=== PATIENT | female | born 1955 | race Asian ===

== ENCOUNTER 2017-01-29 09:15 | Emergency (ER) | payer OTHER ==
[~2017-01-29] VITALS: Ht 147.3 cm; Wt 66.3 kg
[2017-01-29 09:51] LABS: HEMATOCRIT 45.2 % (36.0-46.0); MCH 29.4 PG (29.0-34.0); MCHC 32.7 G/DL (30.0-36.0); MCV 89.9 FL (83-99); MEAN PLAT.VOLUME 9.3 uM^3 (9.5-12.4); PLATELET COUNT 191 K/uL (156-360); RBC DIS.WIDTH-CV 13.2 % (11.8-14.6); RED BLOOD COUNT 5.03 M/uL (3.80-5.20); WHITE BLOOD COUNT 4.3 K/uL (4.1-10.2)
[2017-01-29 10:03] LABS: CHLORIDE 111 mEq/L (99-109); SODIUM 140 mEq/L (136-147)
[2017-01-29 10:04] LABS: GLUCOSE 92 mg/dL (70-99)
[2017-01-29 10:06] LABS: ANION GAP 7 MEQ/L (2-14)
[2017-01-29 10:08] LABS: GFR ESTIMATE (CALCULATED) > 59 mL/min/
[2017-01-29 10:09] LABS: UREA NITROGEN (BUN) 10 mg/dL (9-23)
[2017-01-29 10:12] LABS: TROP-I INTERPRETATION NEGATIVE; TROPONIN-I < 0.01 ng/mL (0.0-0.30)
[2017-01-29 10:56] LABS: D-DIMER ELISA 0.34 mg/L FEU (< 0.57)
[2017-01-29 13:02] LABS: TROP-I INTERPRETATION NEGATIVE; TROPONIN-I < 0.01 ng/mL (0.0-0.30)
[2017-01-29 14:43] VITALS: BP 139/84
== END 2017-01-29 14:44 | disposition home or self-care (01) ==
LOC: EME 09:15 → EDOF 13:46 → EME 13:46 → EDOF 13:46
PROVIDERS: Emergency Medicine
DX: R07.9 Chest pain, unspecified (principal); R42 Dizziness and giddiness; M79.605 Pain in left leg; R06.02 Shortness of breath; I10 Essential (primary) hypertension; Z82.49 Family history of ischemic heart disease and other diseases of the circulatory system
CPT/HCPCS: 70450; 71020; 80048; 84484; 85027; 85379; 93005; 93971; 99281; 99284; G0378